=== PATIENT | female | born 1990 | race Caucasian/White ===

== ENCOUNTER 2017-11-09 07:31 | Outpatient (CLI) | payer OTHER ==
--- NOTE | 2017-11-09 12:09 | NM ---
NUCLEAR MEDICINE HEPATOBILIARY SCAN: Date: 11/09/17 HISTORY: Epigastric abdominal pain. TECHNIQUE: A hepatobiliary scan was performed using 5.2 mCi of technetium-99m mebrofenin. An ejection fraction w as estimated after giving 8 oz of Ensure PO. FINDINGS: Prompt uptake of the radiopharmaceutical by the liver is seen. Gallbladder and biliary activity is se en within 7 minutes. Bowel activity is seen within 30 minutes. The gallbladder ejection fraction was estimated 63%. IMPRESSION: Normal hepatobiliary scan. POS: [facility]
== END 2017-11-09 07:32 | disposition home or self-care (01) ==
LOC: NM 07:31
PROVIDERS: ATTEND Internal Medicine Gastroenterology
DX: R10.13 Epigastric pain (principal)
CPT/HCPCS: 78227; A9537

== ENCOUNTER 2018-09-23 07:36 | Outpatient (CLI) | payer BC ==
--- NOTE | 2018-09-23 12:37 | NM ---
NUCLEAR MEDICINE GASTRIC EMPTYING SCAN: HISTORY: A 27-year-old female with a history of epigastric pain. FINDINGS: The patient ingested 2.1 mCi Technetium 99m sulfur colloid orally mixed with eggs. There is 22% empt tonia at 30 minutes, 46% emptying at approximately 71 minutes, 62% emptying at 2 hours, and 76% emptyi ng at 3 hours, and 82% emptying at 4 hours. The 4-hour emptying of 82% indicates some abnormal reten tion at the 4-hour time period. IMPRESSION: Delayed emptying with approximately 18% retention at 4 hours with a normal retention at 4 hours being 10%. The 30-minute, 1 hour, 2 hour, and 3 hour studies are within normal limits. POS: [facility]
== END 2018-09-23 07:37 | disposition home or self-care (01) ==
LOC: NM 07:36
PROVIDERS: ATTEND Internal Medicine Gastroenterology
DX: R10.13 Epigastric pain (principal); R10.30 Lower abdominal pain, unspecified; R19.4 Change in bowel habit; R11.0 Nausea; R53.83 Other fatigue
CPT/HCPCS: 78264; A9541

== ENCOUNTER 2019-01-26 08:38 | Outpatient (CLI) | payer BC ==
--- NOTE | 2019-01-26 09:15 | ULT ---
EXAM: Bilateral lower extremity venous duplex: Deep veins evaluated with color Doppler, spectral analysis, and compression. INDICATIONS: Bilateral lower extremity pain and edema. FINDINGS: Deep veins interrogated include common femoral vein, femoral vein, popliteal vein, and post erior tibial vein. These veins show normal compression and blood flow. No evidence of DVT. IMPRESSION: Negative Bilateral venous duplex exam.
== END 2019-01-26 08:39 | disposition home or self-care (01) ==
LOC: SCSULT 08:38
PROVIDERS: ATTEND Family Medicine
DX: I83.93 Asymptomatic varicose veins of bilateral lower extremities (principal)
CPT/HCPCS: 93970